=== PATIENT | male | born 1970 | race Caucasian/White ===

== ENCOUNTER 2020-12-20 19:19 | Emergency (ER) | payer SELFPAY ==
[~2020-12-20] VITALS: Ht 106.7 cm; Wt 50.0 kg
[2020-12-20 19:20] VITALS: Ht 106.7 cm; Wt 50.0 kg
[2020-12-20] MEDS ORDERED: GLUCOPHAGE1000 MG PO (19:22)
[2020-12-20] MEDS ORDERED: NEURONTIN 300300 MG PO (19:23)
[2020-12-20] MEDS ORDERED: ACETAMINOPHEN500 M1 PO (19:24)
[2020-12-20 21:24] VITALS: BP 131/78
== END 2020-12-20 21:24 ==
LOC: D.ER 19:19
DX: G54.6 Phantom limb syndrome with pain (principal); E11.9 Type 2 diabetes mellitus without complications; Z79.84 Long term (current) use of oral hypoglycemic drugs